=== PATIENT | male | born 1935 | race Caucasian/White ===

== ENCOUNTER 2016-09-27 08:25 | Day surgery (SDC) | payer MEDICARE, OTHER ==
[2016-09-27] MEDS ORDERED: LACTATED RINGERS 1,000 ML IV ONE (09:03)
[2016-09-27] MEDS ORDERED: MIDAZOLAM 2 MG/2 ML VIAL IVP ONE (09:34)
[2016-09-27] MEDS ORDERED: fentaNYL 250 MCG/5 ML VIAL IVP ONE (09:34)
== END 2016-09-27 08:26 | disposition home or self-care (01) ==
PROC: 0DBH8ZZ Excision of Cecum, Via Natural or Artificial Opening Endoscopic (ICD-10-PCS; 2016-09-27)
PROC: 0DBL8ZZ Excision of Transverse Colon, Via Natural or Artificial Opening Endoscopic (ICD-10-PCS; principal; 2016-09-27 09:30)
DX: Z12.11 Encounter for screening for malignant neoplasm of colon (principal); D12.3 Benign neoplasm of transverse colon; D12.0 Benign neoplasm of cecum; K57.30 Diverticulosis of large intestine without perforation or abscess without bleeding; K64.1 Second degree hemorrhoids
CPT/HCPCS: 45380; 45385; 88305; J3010; J7120

== ENCOUNTER 2016-12-05 15:33 | Outpatient (CLI) | payer MEDICARE, OTHER | END 2016-12-05 15:34 | disposition home or self-care (01) | DX: Z79.899 Other long term (current) drug therapy (principal); I10 Essential (primary) hypertension; Z12.5 Encounter for screening for malignant neoplasm of prostate; E74.39 Other disorders of intestinal carbohydrate absorption; E78.5 Hyperlipidemia, unspecified | CPT/HCPCS: 36415; 80053; 80061; 83036; 84443; 85025; G0103 ==

== ENCOUNTER 2018-01-03 09:14 | Outpatient (CLI) | payer MEDICARE, OTHER ==
[2018-01-03 09:35] LABS: BASOPHILS % (AUTO) 0.5 %; EOSINOPHILS # (AUTO) 0.1 10^3/uL (0.0-0.7); EOSINOPHILS % (AUTO) 2.4 %; HGB - HEMOGLOBIN 14.9 g/dL (14.0-18.0); LYMPHOCYTES # (AUTO) 1.5 10^3/uL (1.5-3.5); LYMPHOCYTES % (AUTO) 29.4 %; MEAN CORPUSCULAR HEMOGLOBIN 31.4 pg (27.0-31.0); MEAN CORPUSCULAR HGB CONC 34.2 g/dL (32.0-36.0); MEAN CORPUSCULAR VOLUME 91.7 fL (80.0-94.0); MEAN PLATELET VOLUME 7.6 fL (7.4-11.4); MONOCYTES # (AUTO) 0.4 10^3/uL (0.0-1.0); MONOCYTES % (AUTO) 8.2 %; NEUTROPHILS # (AUTO) 3.1 10^3/uL (1.5-6.6); NEUTROPHILS % (AUTO) 59.5 %; PLT - PLATELET COUNT 178 10^3/uL (130-450); RED BLOOD COUNT 4.73 10^6/uL (4.70-6.10); WHITE BLOOD COUNT 5.2 x10^3/uL (4.8-10.8)
[2018-01-03 10:44] LABS: ALBUMIN 3.8 g/dL (3.2-5.5); ALBUMIN/GLOBULIN RATIO 1.3 (1.0-2.2); ALKALINE PHOSPHATASE 63 IU/L (42-121); ALT ALANINE AMINOTRANSFERASE 23 IU/L (10-60); AST ASPARTATE AMINOTRANSFERASE 35 IU/L (10-42); BILIRUBIN,TOTAL 1.3 mg/dL (0.2-1.0); BUN - BLOOD UREA NITROGEN 18 mg/dL (6-20); CALCIUM 8.7 mg/dL (8.5-10.3); CARBON DIOXIDE - CO2 27 mmol/L (21-32); CHLORIDE 103 mmol/L (101-111); CHOL/HDL RATIO 4.4 (<5.0); CHOLESTEROL 198 mg/dL; CREATININE 0.9 mg/dL (0.6-1.2); GFR - MDRD 81 (>89); GLUCOSE 116 mg/dL (70-100); HDL CHOLESTEROL 45 mg/dL; LDL CHOLESTEROL,CALCULATED 126 mg/dL; LDL/HDL RATIO 2.8 (<3.6); SODIUM 136 mmol/L (135-145); TOTAL PROTEIN 6.8 g/dL (6.7-8.2); VLDL CHOLESTEROL 27 mg/dL
== END 2018-01-03 09:15 | disposition home or self-care (01) ==
LOC: LAB 09:14
PROVIDERS: ATTEND Physician Assistant
DX: R74.8 Abnormal levels of other serum enzymes (principal); E78.5 Hyperlipidemia, unspecified; Z12.5 Encounter for screening for malignant neoplasm of prostate; F52.21 Male erectile disorder; I10 Essential (primary) hypertension; R20.2 Paresthesia of skin
CPT/HCPCS: 36415; 80053; 80061; 84443; 85025; G0103; 83721; 84153

== ENCOUNTER 2018-12-12 18:50 | Emergency (ER) | payer MEDICARE, OTHER ==
[2018-12-12 20:05] LABS: BILIRUBIN,URINE NEGATIVE (NEGATIVE); GLUCOSE, URINE (UA) NEGATIVE (NEGATIVE); KETONES,URINE (UA) NEGATIVE (NEGATIVE); LEUKOCYTE ESTERASE, URINE NEGATIVE (NEGATIVE); NITRITE,URINE NEGATIVE (NEGATIVE); OCCULT BLOOD,URINE MODERATE (NEGATIVE); PROTEIN,URINE NEGATIVE (NEGATIVE); UROBILINOGEN,URINE 0.2 (NORMAL) E.U./dL (NORMAL)
[2018-12-12 20:06] LABS: CLARITY,URINE CLEAR (CLEAR)
[2018-12-12 20:06] LABS: BASOPHILS % (AUTO) 0.2 %; EOSINOPHILS # (AUTO) 0.1 10^3/uL (0.0-0.7); EOSINOPHILS % (AUTO) 0.7 %; HGB - HEMOGLOBIN 14.2 g/dL (14.0-18.0); LYMPHOCYTES # (AUTO) 0.4 10^3/uL (1.5-3.5); LYMPHOCYTES % (AUTO) 4.7 %; MEAN CORPUSCULAR HEMOGLOBIN 30.7 pg (27.0-31.0); MEAN CORPUSCULAR VOLUME 90.2 fL (80.0-94.0); MEAN PLATELET VOLUME 8.1 fL (7.4-11.4); MONOCYTES # (AUTO) 0.3 10^3/uL (0.0-1.0); MONOCYTES % (AUTO) 3.4 %; NEUTROPHILS # (AUTO) 7.1 10^3/uL (1.5-6.6); PLT - PLATELET COUNT 154 10^3/uL (130-450); RED BLOOD COUNT 4.63 10^6/uL (4.70-6.10); RED CELL DISTRIBUTION WIDTH 12.8 % (12.0-15.0); WHITE BLOOD COUNT 7.8 x10^3/uL (4.8-10.8)
[2018-12-12 20:15] LABS: BACTERIA,URINE None Seen /HPF (None Seen); RBC,URINE 0-5 /HPF (0-5); SQUAMOUS EPITHELIAL CELL,UR RARE Squamous (<= Few)
[2018-12-12 20:16] LABS: ALBUMIN/GLOBULIN RATIO 1.4 (1.0-2.2); BILIRUBIN,TOTAL 0.6 mg/dL (0.2-1.0); CALCIUM 8.7 mg/dL (8.5-10.3); CREATININE 0.9 mg/dL (0.6-1.2); TOTAL PROTEIN 6.8 g/dL (6.7-8.2)
[2018-12-12 21:01] VITALS: BP 124/72
--- NOTE | 2018-12-12 21:41 | ED Physician Documentation ---
PD HPI FEVER - Stated complaint Stated Complaint: SHAKING - Chief complaint Chief Complaint: Fever - History obtained from History obtained from: Patient - History of Present Illness Timing - onset: Enter time (17:00), Today Timing details: Abrupt onset Pain level max: 0 Pain level now: 0 Associated symptoms: Chills, Nasal congestion (mild x 1 month). No: Sweats Similar symptoms before: Has not had sx before Recently seen: Not recently seen - Additional information Additional information: while driving home today, at approximately 5:30 PM, patient had rapid onset of generalized shaking chills. This continued once he arrived home; he took his blood pressure and found it to be 160s SBP. Shaking resolved en route to ED (private vehicle), and he tells me he is asymptomatic on my HPI/ROS. He told triaging RN about some abdominal discomfort, but he tells me that was minor and has resolved completely. Review of Systems Constitutional: reports: Fever, Chills. denies: Myalgias, Fatigue, Sweats Ears: denies: Ear pain Nose: reports: Congestion (mild sinus congestion x 1 month). denies: Rhinorrhea / runny nose, Sinus pressure / pain Throat: denies: Sore throat Cardiac: reports: Reviewed and negative Respiratory: reports: Reviewed and negative GI: reports: Reviewed and negative : denies: Dysuria, Frequency Skin: denies: Rash Musculoskeletal: denies: Neck pain, Back pain Neurologic: denies: Generalized weakness, Focal weakness, Headache PD PAST MEDICAL HISTORY - Past Medical History Past Medical History: Yes Cardiovascular: High cholesterol, Arrhythmia Respiratory: None Endocrine/Autoimmune: None GI: None : Benign prostate hypertrophy HEENT: None Psych: None Musculoskeletal: None Derm: None - Past Surgical History Past Surgical History: Yes General: Appendectomy, Colonoscopy Ortho: Other - Present Medications Home Medications: Ambulatory Orders Medication Instructions Recorded Confirmed Finasteride [Proscar] 5 mg PO DAILY 02/26/15 12/12/18 Lovastatin 40 mg ORAL DAILY 02/26/15 12/12/18 Tamsulosin [Flomax] 0.4 mg PO ONCE 02/26/15 12/12/18 - Allergies Allergies/Adverse Reactions: Allergies Allergy/AdvReac Type Severity Reaction Status Date / Time No Known Drug Allergies Allergy Verified 12/12/18 19:16 - Social History Does the pt smoke?: No Smoking Status: Never smoker Does the pt drink ETOH?: No Does the pt have substance abuse?: No - Immunizations Immunizations are current?: No - POLST Patient has POLST: No PD ED PE NORMAL - Vitals Vital signs reviewed: Yes - General General: Alert and oriented X 3, No acute distress, Well developed/nourished - HEENT HEENT: PERRL, EOMI, Moist mucous membranes, Pharynx benign - Neck Neck: Supple, no meningeal sign - Cardiac Cardiac: RRR, No murmur - Respiratory Respiratory: No respiratory distress, Clear bilaterally - Abdomen Abdomen: Normal bowel sounds, Soft, Non tender, Non distended - Back Back: No CVA TTP - Derm Derm: Normal color, Warm and dry - Extremities Extremities: Normal ROM s pain, No edema - Neuro Neuro: Alert and oriented X 3 Results - Vitals Vitals: Vital Signs - 24 hr 12/12/18 12/12/18 12/12/18 19:11 19:58 20:23 Temperature 37.9 C H 37.7 C H Heart Rate 100 85 84 Respiratory 16 17 17 Rate Blood Pressure 149/72 H 132/80 H 118/77 O2 Saturation 96 95 94 12/12/18 12/12/18 12/12/18 21:01 22:00 22:48 Temperature 38.6 C H 37.3 C 98.5 C H Heart Rate 81 Respiratory 18 Rate Blood Pressure 124/72 O2 Saturation 96 Oxygen O2 Source Room air - Labs Labs: Laboratory Tests 12/12/18 12/12/18 12/12/18 19:40 19:41 19:50 WBC 7.8 RBC 4.63 L Hgb 14.2 Hct 41.7 L MCV 90.2 MCH 30.7 MCHC 34.0 RDW 12.8 Plt Count 154 MPV 8.1 Neut # (Auto) 7.1 H Lymph # (Auto) 0.4 L [place] # (Auto) 0.3 Eos # (Auto) 0.1 Baso # (Auto) 0.0 Absolute Nucleated RBC 0.00 Nucleated RBC % 0.0 Sodium Potassium Chloride Carbon Dioxide Anion Gap BUN Creatinine Estimated GFR (MDRD) Glucose Lactic Acid 1.5 Calcium Total Bilirubin AST ALT Alkaline Phosphatase Total Protein Albumin Globulin Albumin/Globulin Ratio Lipase Urine Color YELLOW Urine Clarity CLEAR Urine pH 5.0 Ur Specific [place] 1.020 Urine Protein NEGATIVE Urine Glucose (UA) NEGATIVE Urine Ketones NEGATIVE Urine Occult Blood MODERATE H Urine Nitrite NEGATIVE Urine Bilirubin NEGATIVE Urine Urobilinogen 0.2 (NORMAL) Ur Leukocyte Esterase NEGATIVE Urine RBC 0-5 Urine WBC 0-3 Ur Squamous Epith Cells RARE Squamous Urine Bacteria None Seen Ur Microscopic Review INDICATED Urine Culture Comments NOT INDICATED Influenza A (Rapid) Influenza B (Rapid) 12/12/18 12/12/18 19:50 21:50 WBC RBC Hgb Hct MCV MCH MCHC RDW Plt Count MPV Neut # (Auto) Lymph # (Auto) [place] # (Auto) Eos # (Auto) Baso # (Auto) Absolute Nucleated RBC Nucleated RBC % Sodium 137 Potassium 3.5 Chloride 100 L Carbon Dioxide 26 Anion Gap 11.0 BUN 20 Creatinine 0.9 Estimated GFR (MDRD) 81 L Glucose 103 H Lactic Acid Calcium 8.7 Total Bilirubin 0.6 AST 33 ALT 21 Alkaline Phosphatase 75 Total Protein 6.8 Albumin 4.0 Globulin 2.8 Albumin/Globulin Ratio 1.4 Lipase 28 Urine Color Urine Clarity Urine pH Ur Specific [place] Urine Protein Urine Glucose (UA) Urine Ketones Urine Occult Blood Urine Nitrite Urine Bilirubin Urine Urobilinogen Ur Leukocyte Esterase Urine RBC Urine WBC Ur Squamous Epith Cells Urine Bacteria Ur Microscopic Review Urine Culture Comments Influenza A (Rapid) Negative Influenza B (Rapid) Negative PD MEDICAL DECISION MAKING - ED course Complexity details: reviewed results, re-evaluated patient, considered differential, d/w patient ED course: Remained asymptomatic for remainder of ED stay. I recommended tylenol or ibuprofen for his fever, but he declines, says he will take this when he gets home Departure - Departure Disposition: 01 Home, Self Care Clinical Impression: Fever Condition: Good Instructions: ED Fever Unconf Cause, ED Fever Control Follow-Up: Trav Avitia MD [Primary Care Provider] - Discharge Date/Time: 12/12/18 22:51
== END 2018-12-12 22:51 | disposition home or self-care (01) ==
LOC: ED 18:50
DX: R50.9 Fever, unspecified (principal)
CPT/HCPCS: 36415; 80053; 81001; 81003; 83605; 83690; 85025; 87040; 87086; 87275; 87276; 99282; 99284

== ENCOUNTER 2018-12-31 07:53 | Outpatient (CLI) | payer MEDICARE, OTHER ==
[2018-12-31 08:32] LABS: ALBUMIN 3.8 g/dL (3.2-5.5); ALBUMIN/GLOBULIN RATIO 1.3 (1.0-2.2); ALKALINE PHOSPHATASE 72 IU/L (42-121); ALT ALANINE AMINOTRANSFERASE 26 IU/L (10-60); AST ASPARTATE AMINOTRANSFERASE 34 IU/L (10-42); BILIRUBIN,TOTAL 0.9 mg/dL (0.2-1.0); BUN - BLOOD UREA NITROGEN 17 mg/dL (6-20); CARBON DIOXIDE - CO2 30 mmol/L (21-32); CHLORIDE 104 mmol/L (101-111); CHOL/HDL RATIO 4.1 (<5.0); CHOLESTEROL 184 mg/dL; CREATININE 0.9 mg/dL (0.6-1.2); GFR - MDRD 81 (>89); GLUCOSE 114 mg/dL (70-100); HDL CHOLESTEROL 45 mg/dL; LDL CHOLESTEROL,CALCULATED 126 mg/dL; LDL/HDL RATIO 2.8 (<3.6); SODIUM 141 mmol/L (135-145); TOTAL PROTEIN 6.8 g/dL (6.7-8.2); VLDL CHOLESTEROL 13 mg/dL
== END 2018-12-31 07:54 | disposition home or self-care (01) ==
LOC: LAB 07:53
PROVIDERS: ATTEND Internal Medicine
DX: E78.5 Hyperlipidemia, unspecified (principal); N40.1 Benign prostatic hyperplasia with lower urinary tract symptoms; E74.39 Other disorders of intestinal carbohydrate absorption
CPT/HCPCS: 36415; 80053; 80061; 83036; 83721; 84153

== ENCOUNTER 2019-10-18 08:23 | Outpatient (CLI) | payer MEDICARE, OTHER ==
[2019-10-18 09:28] LABS: ALBUMIN 4.1 g/dL (3.2-5.5); ALBUMIN/GLOBULIN RATIO 1.4 (1.0-2.2); ALKALINE PHOSPHATASE 63 IU/L (42-121); ALT ALANINE AMINOTRANSFERASE 19 IU/L (10-60); AST ASPARTATE AMINOTRANSFERASE 28 IU/L (10-42); BILIRUBIN,TOTAL 0.8 mg/dL (0.2-1.0); BUN - BLOOD UREA NITROGEN 18 mg/dL (6-20); CALCIUM 8.9 mg/dL (8.5-10.3); CARBON DIOXIDE - CO2 29 mmol/L (21-32); CHLORIDE 105 mmol/L (101-111); CHOL/HDL RATIO 3.7 (<5.0); CHOLESTEROL 159 mg/dL; GFR - MDRD 71 (>89); GLUCOSE 114 mg/dL (70-100); HB2 TOTAL 15.1 g/dL; HDL CHOLESTEROL 43 mg/dL; HEMOGLOBIN A1C 0.61 g/dL; HEMOGLOBIN A1C % 5.8 % (4.6-6.2); LDL CHOLESTEROL,CALCULATED 101 mg/dL; LDL/HDL RATIO 2.3 (<3.6); SODIUM 139 mmol/L (135-145); VLDL CHOLESTEROL 15 mg/dL
== END 2019-10-18 08:24 | disposition home or self-care (01) ==
LOC: LAB 08:23
PROVIDERS: ATTEND Internal Medicine
DX: E78.5 Hyperlipidemia, unspecified (principal); R73.02 Impaired glucose tolerance (oral); N40.1 Benign prostatic hyperplasia with lower urinary tract symptoms
CPT/HCPCS: 36415; 80053; 80061; 83036; 83721; 84153

== ENCOUNTER 2020-11-19 08:42 | Outpatient (CLI) | payer MEDICARE, OTHER ==
[2020-11-19 08:58] LABS: BASOPHILS % (AUTO) 0.6 %; EOSINOPHILS # (AUTO) 0.1 10^3/uL (0.0-0.7); EOSINOPHILS % (AUTO) 2.1 %; HCT - HEMATOCRIT 45.3 % (42.0-52.0); HGB - HEMOGLOBIN 15.7 g/dL (14.0-18.0); LYMPHOCYTES # (AUTO) 1.7 10^3/uL (1.5-3.5); LYMPHOCYTES % (AUTO) 26.7 %; MEAN CORPUSCULAR HEMOGLOBIN 31.8 pg (27.0-31.0); MEAN CORPUSCULAR HGB CONC 34.7 g/dL (32.0-36.0); MEAN CORPUSCULAR VOLUME 91.7 fL (80.0-94.0); MEAN PLATELET VOLUME 9.2 fL (7.4-11.4); MONOCYTES # (AUTO) 0.5 10^3/uL (0.0-1.0); MONOCYTES % (AUTO) 7.6 %; NEUTROPHILS # (AUTO) 3.9 10^3/uL (1.5-6.6); NEUTROPHILS % (AUTO) 62.7 %; PLT - PLATELET COUNT 207 10^3/uL (130-450); RED BLOOD COUNT 4.94 10^6/uL (4.70-6.10); RED CELL DISTRIBUTION WIDTH 12.3 % (12.0-15.0); WHITE BLOOD COUNT 6.2 x10^3/uL (4.8-10.8)
[2020-11-19 09:14] LABS: ALBUMIN 4.5 g/dL (3.2-5.5); ALBUMIN/GLOBULIN RATIO 1.6 (1.0-2.2); ALKALINE PHOSPHATASE 65 IU/L (42-121); ALT ALANINE AMINOTRANSFERASE 32 IU/L (10-60); AST ASPARTATE AMINOTRANSFERASE 37 IU/L (10-42); BILIRUBIN,TOTAL 0.8 mg/dL (0.2-1.0); BUN - BLOOD UREA NITROGEN 18 mg/dL (6-20); CALCIUM 9.3 mg/dL (8.5-10.3); CARBON DIOXIDE - CO2 30 mmol/L (21-32); CHLORIDE 105 mmol/L (101-111); CHOL/HDL RATIO 4.3 (<5.0); CHOLESTEROL 191 mg/dL; GFR - MDRD 71 (>89); GLUCOSE 121 mg/dL (70-100); HDL CHOLESTEROL 44 mg/dL; LDL CHOLESTEROL,CALCULATED 125 mg/dL; LDL/HDL RATIO 2.8 (<3.6); POTASSIUM 4.6 mmol/L (3.5-5.0); SODIUM 141 mmol/L (135-145); TOTAL PROTEIN 7.4 g/dL (6.7-8.2); TRIGLYCERIDES 112 mg/dL; VLDL CHOLESTEROL 22 mg/dL
== END 2020-11-19 08:43 | disposition home or self-care (01) ==
LOC: LAB 08:42
PROVIDERS: ATTEND Internal Medicine
DX: I10 Essential (primary) hypertension (principal); E78.5 Hyperlipidemia, unspecified; Z12.5 Encounter for screening for malignant neoplasm of prostate
CPT/HCPCS: 36415; 80053; 80061; 85025; G0103; 83721; 84153

== ENCOUNTER 2020-11-21 11:40 | Emergency (ER) | payer MEDICARE, OTHER ==
[2020-11-21] MEDS ORDERED: IOPAMIDOL-300 100 ML VIAL ONE (12:40)
--- OUTSIDE RECORDS SUMMARY | 2020-11-21 12:42 | EXTERNAL MEDICAL SUMMARY RPT | Continuity of Care Document ---
:1935 Demographics Phone Unavailable Preferred Language Unknown Marital Status Unknown [employer] Affiliation Unknown Race Unknown Ethnic Group Unknown Author Organization [facility] Address [address] [id number] Phone Social History date description facility [phone]
--- NOTE | 2020-11-21 12:43 | ED Physician Documentation ---
History of Present Illness - Stated complaint Stated Complaint: CONSTIPATION - Chief complaint Chief Complaint: Abd Pain - History obtained from History obtained from: Patient - Additonal information Additional information: Patient comes emergency department chief complaint of difficulty having bowel movement for the last month. Patient states that he has never had a problem with constipation before. He has always been very healthy and eats a very healthy diet with a lot of fresh fruits and vegetables. He exercises regularly and only takes 3 medications. The patient states that he began to notice that he was not able to have bowel movements easily about a month ago and states it has been getting worse and worse. He does not have pain, just a sensation of fullness and pressure in his pelvic area. He has not been nauseated or vomiting. He has a history of a right inguinal hernia, which he is going to have surgically repaired. Patient states that he has not noticed any blood in his stools. He took MiraLAX and an enema last week and was able to have a reasonably sized bowel movement about 1 week ago, but states he never felt as though he had completely evacuated. The patient states that since then, he has had a couple of bowel movements which have been minimal and very skinny and that he has had to push hard to get these to come out. However, he states that the stool that has come out is soft. No other complaints at this time. Has not had any unexplained weight loss. He states he is not aware of any colon cancer running in his family, though he states that his parents are very stoic and never talked about any of their health issues. Patient had a colonoscopy a few years ago which looked good. Review of Systems Ten Systems: 10 systems reviewed and negative Constitutional: reports: Reviewed and negative Eyes: reports: Reviewed and negative Ears: reports: Reviewed and negative Nose: reports: Reviewed and negative Throat: reports: Reviewed and negative Cardiac: reports: Reviewed and negative Respiratory: reports: Reviewed and negative GI: reports: Constipation, Reviewed and negative, Other (pelvic pressure). denies: Abdominal Pain, Nausea, Vomiting : reports: Reviewed and negative Skin: reports: Reviewed and negative Musculoskeletal: reports: Reviewed and negative Neurologic: reports: Reviewed and negative Psychiatric: reports: Reviewed and negative Endocrine: reports: Reviewed and negative Immunocompromised: reports: Reviewed and negative PD PAST MEDICAL HISTORY - Past Medical History Past Medical History: Yes Cardiovascular: High cholesterol, Arrhythmia Respiratory: None Neuro: None Endocrine/Autoimmune: None GI: None : Benign prostate hypertrophy HEENT: None Psych: None Musculoskeletal: None Derm: None - Past Surgical History Past Surgical History: Yes General: Appendectomy, Colonoscopy Ortho: Other - Present Medications Home Medications: Ambulatory Orders Medication Instructions Recorded Confirmed Finasteride [Proscar] 5 mg PO DAILY 02/26/15 11/21/20 Lovastatin 40 mg ORAL DAILY 02/26/15 11/21/20 Tamsulosin [Flomax] 0.4 mg PO DAILY PM 02/26/15 11/21/20 - Allergies Allergies/Adverse Reactions: Allergies Allergy/AdvReac Type Severity Reaction Status Date / Time No Known Drug Allergies Allergy Verified 11/21/20 11:43 - Social History Does the pt smoke?: No Smoking Status: Never smoker Does the pt drink ETOH?: No Does the pt have substance abuse?: No - Immunizations Immunizations are current?: Yes - POLST Patient has POLST: No PD ED PE NORMAL - Vitals Vital signs reviewed: Yes - General General: Alert and oriented X 3, No acute distress, Well developed/nourished (Patient appears well, and much younger than stated age.) - HEENT HEENT: Atraumatic, PERRL, EOMI, Moist mucous membranes - Neck Neck: Supple, no meningeal sign - Cardiac Cardiac: RRR, No murmur - Respiratory Respiratory: No respiratory distress, Clear bilaterally - Abdomen Abdomen: Soft, Non tender, Non distended - Male Male : Other (Mild fullness of R proximal scrotum, no mass. Normal male genitalia, uncircumcised.) - Derm Derm: Normal color, Warm and dry, No rash - Extremities Extremities: No deformity, No edema, No calf tenderness / cord - Neuro Neuro: Alert and oriented X 3 - Psych Psych: Normal mood, Normal affect Results - Vitals Vitals: Oxygen O2 Source Room air - Labs Labs: Laboratory Tests 11/21/20 12:44 Sodium 138 Potassium 4.0 Chloride 102 Carbon Dioxide 27 Anion Gap 9.0 BUN 18 Creatinine 0.9 Estimated GFR (MDRD) 80 L Glucose 110 H Calcium 8.9 - Rads (name of study) CT abd/pelvis Radiology: Final report received, EMP read indepedently, See rad report (bilateral fat-containing hernias; NAD) PD MEDICAL DECISION MAKING - ED course Complexity details: reviewed results, re-evaluated patient, considered differential, d/w patient ED course: Discussed with the patient that generally, any obstructive process, whether by volvulus or by mechanical obstruction, is going to cause pain, as well as nausea and vomiting. The patient stools have been soft which does not indicate a problem with the stool itself. Patient is concerned about possible obstruction related to his hernia., And states he came to the ED with hopes that we could do some imaging to take a look at this. Although I feel the likelihood is low, given his lack of other symptoms, this would be, along with potential for a mass, the only discernible reason that he may have bowel movement issues otherwise, and so I have ordered a CT of the abdomen and pelvis. This was done and unremarkable. We have discussed home management and the need for follow-up, as well as the usual indications for return. Departure - Departure Disposition: 01 Home, Self Care Clinical Impression: Inguinal hernia Qualifiers: Obstruction and gangrene presence: without obstruction or gangrene Laterality: bilateral Recurrence: not specified as recurrent Qualified Code(s): K40.20 - Bilateral inguinal hernia, without obstruction or gangrene, not specified as recurrent Condition: Stable Instructions: ED Hernia Inguinal Comments: Your CT scan shows hernias on both sides, but the right is greater than the left. Your bowels actually appear normal, and there is no evidence of a stool mass, tumor, or excess amount of stool in your intestines. Most likely, you have cleared out more during your bowel movements than you realize. If you are eating a good, high-fiber diet and keeping active, then it is best to just let your body have bowel movements when it is ready. Please do not try to push stool out if you do not have an urge to go, as this will make your hernias worse and can also cause hemorrhoids. Please follow-up with your primary care physician as needed. Discharge Date/Time: 11/21/20 14:21
[2020-11-21 13:00] LABS: CALCIUM 8.9 mg/dL (8.5-10.3); CREATININE 0.9 mg/dL (0.6-1.2)
[2020-11-21] MEDS ORDERED: IOPAMIDOL-300 100 ML VIAL IVP ONE (13:38)
--- NOTE | 2020-11-21 13:53 | CT Report ---
PROCEDURE: Abdomen/Pelvis W INDICATIONS: hernia, trouble with BM CONTRAST: IV CONTRAST: Isovue 300 ml: 100 PO CONTRAST: *NO PO CONTRAST TECHNIQUE: After the administration of nonionic IV contrast, 5 mm thick sections acquired from the diaphragms to the symphysis. 5 mm thick coronal and sagittal reformats were acquired. For radiation dose reducti on, the following was used: automated exposure control, adjustment of mA and/or kV according to xiomara ent size. COMPARISON: None. FINDINGS: Image quality: Excellent. ABDOMEN: Lung bases: Lung bases are clear. Heart size is normal. A small hiatal hernia is incidentally note d. Solid organs: Liver and spleen are normal in size and enhancement. Simple appearing, nonenhancing l iver cysts are seen. Gallbladder wall does not appear thickened. Biliary system is non dilated. P ancreas enhances normally. No adrenal nodules. Kidneys demonstrate normal size and enhancement, wit hout hydronephrosis. Peritoneum and bowel: Bowel loops demonstrate normal wall thickness and caliber. No free fluid or a ir. Diverticulosis can be seen, without marely findings of active diverticulitis. Nodes and vessels: No retroperitoneal or mesenteric adenopathy by size criteria. Aorta and inferior vena cava are normal in size. Atherosclerotic calcification is seen. Focal irregularity and narrowi ng can be seen of the distal aorta, with approximately 40% luminal narrowing. Dense calcification of the mid SMA can be seen, as on series 3 image 26, with approximately 50% narrowing. Miscellaneous: No ventral hernias. PELVIS: Genitourinary: Bladder wall thickness is normal. Miscellaneous: Bilateral fat-containing inguinal hernias are seen, left larger than right. No inguin al adenopathy. Bones: Left-sided sacroiliac joint screws can be seen. No suspicious bony lesions. No vertebral bod y compression fractures. Focal L5-S1 degenerative change is seen, with at least moderate disc space narrowing. Mild grade 1 L5-S1 anterolisthesis can be seen, without pars defects. Milder degenerative changes are seen elsewhere. IMPRESSION: There are bilateral fat-containing inguinal hernias seen, left larger than right. Atherosclerotic calcification and irregularity can be seen, including approximately 40% distal aortic narrowing and approximately 50% mid SMA narrowing. Incidental note is made of: Small hiatal hernia Simple appearing liver cysts Sigmoid diverticulosis, without active diverticulitis Focal L5-S1 degenerative change Left-sided sacroiliac screws Reviewed by: Chidi Russo MD on 11/21/2020 12:52 PM AKDT Approved by: Chidi Russo MD on 11/21/2020 12:52 PM AKDT Station ID: [id number]
[2020-11-21 14:18] VITALS: BP 120/65
== END 2020-11-21 14:21 | disposition home or self-care (01) ==
LOC: ED 11:40
DX: K40.20 Bilateral inguinal hernia, without obstruction or gangrene, not specified as recurrent (principal)
CPT/HCPCS: 36415; 74177; 80048; 99284; Q9967

== ENCOUNTER 2020-12-03 15:05 | Outpatient (CLI) | payer MEDICARE, OTHER | END 2020-12-03 15:06 | disposition home or self-care (01) | LOC: COV 15:05 | PROVIDERS: ATTEND Surgery | DX: Z01.812 Encounter for preprocedural laboratory examination (principal); K40.91 Unilateral inguinal hernia, without obstruction or gangrene, recurrent; Z20.822 Contact with and (suspected) exposure to COVID-19 ==

== ENCOUNTER 2020-12-07 06:25 | Day surgery (SDC) | payer MEDICARE, OTHER ==
[~2020-12-07 06:25] MED LIST: LACTATED RINGERS 1,000 ML IV ONE; ceFAZolin 2 GM/50 ML 2 GM/50 ML BAG IV ONE
--- OUTSIDE RECORDS SUMMARY | 2020-12-07 06:28 | EXTERNAL MEDICAL SUMMARY RPT | Continuity of Care Document ---
:1935 Demographics Phone Unavailable Preferred Language Unknown Marital Status Unknown [employer] Affiliation Unknown Race Unknown Ethnic Group Unknown Author Organization [place] [facility] Address [address] [id number] Phone Social History date description facility [phone]
[2020-12-07] MEDS ORDERED: BUPIVACAINE 0.25% PF 30 ML VIAL ONE (06:52)
[2020-12-07] MEDS ORDERED: LACTATED RINGERS 1,000 ML IV ONE ×2 (06:55→09:05)
--- NOTE | 2020-12-07 06:55 | ANESTHESIA ---
Pre-Anesthesia VS, & Labs - Diagnosis recurrent inguinal hernia - Procedure Laparoscopic inguinal hernia repair Vital Signs: Temp Pulse Resp BP Pulse Ox 36.1 C L 73 14 140/84 H 97 12/07/20 06:28 12/07/20 06:28 12/07/20 06:28 12/07/20 06:28 12/07/20 06:28 Height: 5 ft 11 in Weight (kg): 87.9 kg Body Mass Index: 27.0 BMI Classification: Overweight - NPO >8 hours - Lab Results Lab results reviewed: Yes Home Medications and Allergies Finasteride [Proscar] 5 mg PO DAILY 02/26/15 Lovastatin 40 mg ORAL DAILY 02/26/15 Tamsulosin [Flomax] 0.4 mg PO DAILY PM 02/26/15 Allergies/Adverse Reactions: Allergies Allergy/AdvReac Type Severity Reaction Status Date / Time No Known Drug Allergies Allergy Verified 11/21/20 11:43 Anes History & Medical History - Anesthetic History Anesthesia Complications: reports: No previous complications Family history of Anesthesia Complications: Denies Family history of Malignant Hyperthermia: Denies - Medical History Cardiovascular: reports: High cholesterol, Arrhythmia Pulmonary: reports: None Gastrointestinal: reports: Colon polyps, Chronic constipation Urinary: reports: Benign prostate hypertrophy Neuro: reports: None Musculoskeletal: reports: None Endocrine/Autoimmune: reports: None Blood Disorders: reports: None Skin: reports: None Smoking Status: Never smoker - Surgical History General: reports: Appendectomy, Colonoscopy Eyes Ears Nose Throat (EENT): reports: Cataracts Orthopedic: reports: Other Exam General: Alert, Oriented x3, Cooperative, No acute distress Dental: WNL Mouth Openin Fingerbreadth Neck Mobility: Normal Mallampati classification: I Respiratory: Lungs clear, Normal breath sounds, No respiratory distress, No accessory muscle use Cardiovascular: Regular rate, Normal S1, Normal S2, No murmurs Plan Anesthesia Type: General Consent for Procedure(s) Verified and Reviewed: Yes Code Status: Attempt Resuscitation ASA classification: 2-Mild systemic disease Is this case an emergency?: No
[2020-12-07] MEDS ORDERED: fentaNYL 100 MCG/2 ML VIAL ONE (06:57)
[2020-12-07] MEDS ORDERED: LIDOCAINE-MPF 2% 5 ML VIAL ONE (06:57)
[2020-12-07] MEDS ORDERED: PROPOFOL 200 MG/20 ML VIAL IVP ONE (06:57)
[2020-12-07] MEDS ORDERED: MIDAZOLAM 2 MG/2 ML VIAL ONE (06:57)
[2020-12-07] MEDS ORDERED: ROCURONIUM 50 MG/5 ML VIAL ONE (06:59)
[2020-12-07] MEDS ORDERED: ATROPINE ABBOJECT 1 MG/10 ML SYRINGE IVP PRN (07:15)
[2020-12-07] MEDS ORDERED: MORPHINE 2 MG/ML CARPUJECT IVP PRN (07:15)
[2020-12-07] MEDS ORDERED: fentaNYL 100 MCG/2 ML VIAL IVP PRN (07:15)
[2020-12-07] MEDS ORDERED: NALOXONE 0.4 MG/ML VIAL IVP PRN (07:15)
[2020-12-07] MEDS ORDERED: ePHEDrine 50 MG/ML VIAL IVP PRN (07:15)
[2020-12-07] MEDS ORDERED: HYDROmorphone 0.5 MG/0.5 ML SYRINGE IVP PRN (07:15)
[2020-12-07] MEDS ORDERED: METOCLOPRAMIDE 10 MG/2 ML VIAL IVP PRN (07:15)
[2020-12-07] MEDS ORDERED: ONDANSETRON 4 MG/2 ML VIAL IVP PRN (07:15)
[2020-12-07] MEDS ORDERED: PHENYLEPHRINE 10 MG/ML VIAL ONE (07:31)
[2020-12-07] MEDS ORDERED: DEXAMETHASONE 4 MG/ML VIAL ONE (07:39)
[2020-12-07] MEDS ORDERED: ONDANSETRON 4 MG/2 ML VIAL ONE (07:39)
[2020-12-07] MEDS ORDERED: BUPIVACAINE 0.25% PF 30 ML VIAL SUBQ ONE ×2 (07:39→08:46)
[2020-12-07] MEDS ORDERED: LACTATED RINGERS 1,000 ML IV SCH (08:00)
[2020-12-07] MEDS ORDERED: ACETAMINOPHEN 1,000 MG/100 ML 100 ML IV ONE (08:14)
[2020-12-07] MEDS ORDERED: NEOSTIGMINE 1 MG/1 ML 10 ML MDV ONE (08:40)
[2020-12-07] MEDS ORDERED: GLYCOPYRROLATE 1 MG/5 ML VIAL ONE (08:40)
[2020-12-07] MEDS ORDERED: HYDROcod/ACETAM 5/325 MG TABLET PO PRN (09:13)
--- NOTE | 2020-12-07 09:13 | OPERATIVE REPORT ---
Operative Report - General Procedure Date: 12/07/20 Planned Procedure: lap repair recurrent right inguinal hernia Pre-Op Diagnosis: recurrent right inguinal hernia Procedure Performed: lap repair recurrent right inguinal hernia Post Op Diagnosis: direct and indirect recurrent inguinal hernia - Procedure Note Primary Surgeon: blanquita cummings Anesthesia Technique: General ET tube, Local Estimated Blood Loss (mL): 0 Findings: large right preform mesh Complications: none
--- NOTE | 2020-12-07 09:31 | ANESTHESIA POST OP EVALUATION ---
Anesthesia Post Eval - Post Anesthesia Eval Vitals: Last Vital Signs Temp 36.3 C L 12/07/20 09:25 Pulse 75 12/07/20 09:25 Resp 15 12/07/20 09:25 BP 112/75 12/07/20 09:25 Pulse Ox 93 12/07/20 09:25 CV Function Including HR & BP: Stable Pain Control: Satisfactory Nausea & Vomiting: Negative Mental Status: Baseline Respiratory Status: Airway Patent Hydration Status: Satisfactory Anesthesia Complications: None
--- NOTE | 2020-12-07 09:43 | OPERATIVE REPORT ---
DATE OF SERVICE: 12/07/2020 Physician: Alexis Sheppard MD PREOPERATIVE DIAGNOSIS: Recurrent right inguinal hernia with occasional bowel involvement. POSTOPERATIVE DIAGNOSES 1. Recurrent right inguinal hernia with occasional bowel involvement. 2. Recurrent direct and indirect right inguinal hernia. PROCEDURE: Laparoscopic preperitoneal right inguinal hernia repair with mesh, recurrent. SURGEON: Alexis Sheppard MD ADOPTION SOCIAL WORKER: None. ANESTHESIA 1. General endotracheal anesthesia. 2. Local anesthesia with Marcaine. COMPLICATIONS: None. SPECIMEN: None. ESTIMATED BLOOD LOSS: None. PROSTHETIC: Large Bard preformed mesh. FINDINGS: A large direct and densely scarred indirect inguinal hernia present. INDICATIONS FOR PROCEDURE: The patient is a healthy, active 85-year-old gentleman with a very symptomatic right inguinal hernia. Occasionally, he has intestinal involvement. He had prior open repair with mesh many years ago. He presents for laparoscopic repair. Risks discussed, alternatives discussed, all questions answered, and consent obtained. DETAILS OF THE PROCEDURE: The patient was properly identified, brought to the operating room, and placed in supine position. General endotracheal anesthesia was induced. Sequential compression devices and a Cavanaugh catheter were placed. He was prepped and draped in a sterile fashion and given preoperative antibiotics. Local anesthetic was given to incision areas. An infraumbilical incision was made. Dissection proceeded down to the fascia. The fascia was incised just right lateral of midline. The preperitoneal space was then carefully developed. A Abhishek trocar was then placed and secured with 3 interrupted 0 Vicryl sutures. CO2 was insufflated to a pressure of 12. The preperitoneal space was further developed with use of the scope. In the midline, two 5 mm trocars were then placed. The patient had a very large direct defect. The pubic tubercle and Ata's ligament were defined. The inferior epigastrics were kept with the cord structure. The patient had a very densely scarred indirect inguinal hernia sac to the cord structures and abdominal wall. This was carefully taken down. However, a tear did occur. Once the peritoneum was taken down, allowing for laparoscopic repair with large Bard preformed mesh, the tear in the peritoneum was closed with an Endoloop. Good closure was obtained. A large Bard preformed mesh was then placed and secured at the pubic tubercle along Ata's ligament and anteriorly medial to the inferior epigastrics with a capture device. The mesh lay in good position without tension. CO2 was evacuated under vision and trocars removed. Fascia at the infraumbilical site was closed with a total of 5 interrupted 0 Vicryl sutures. Prior to closure, CO2 was released from the abdomen through the umbilical trocar site. Skin was closed with buried interrupted or running 4-0 Monocryl. Dressings were applied. He tolerated the procedure very well. TD: 12/07/2020 09:42 vivienne PIÑA
[2020-12-07 10:03] VITALS: BP 108/67
== END 2020-12-07 06:26 | disposition home or self-care (01) ==
LOC: SDS 06:25
PROVIDERS: ATTEND Surgery
DX: K40.91 Unilateral inguinal hernia, without obstruction or gangrene, recurrent (principal); N40.0 Benign prostatic hyperplasia without lower urinary tract symptoms; E66.3 Overweight; Z68.27 Body mass index [BMI] 27.0-27.9, adult
CPT/HCPCS: 49651; C1781; J0131; J0690; J7120

== ENCOUNTER 2021-07-13 07:52 | Outpatient (CLI) | payer MEDICARE, OTHER ==
[2021-07-13 08:35] LABS: ALBUMIN 4.1 g/dL (3.2-5.5); ALBUMIN/GLOBULIN RATIO 1.3 (1.0-2.2); ALKALINE PHOSPHATASE 71 IU/L (42-121); ALT ALANINE AMINOTRANSFERASE 19 IU/L (10-60); AST ASPARTATE AMINOTRANSFERASE 29 IU/L (10-42); BUN - BLOOD UREA NITROGEN 23 mg/dL (6-20); CARBON DIOXIDE - CO2 27 mmol/L (21-32); CHLORIDE 102 mmol/L (101-111); CHOL/HDL RATIO 4.3 (<5.0); CHOLESTEROL 177 mg/dL; GFR - MDRD 71 (>89); GLUCOSE 113 mg/dL (70-100); HDL CHOLESTEROL 41 mg/dL; LDL CHOLESTEROL,CALCULATED 117 mg/dL; LDL/HDL RATIO 2.9 (<3.6); SODIUM 138 mmol/L (135-145); TOTAL PROTEIN 7.2 g/dL (6.7-8.2); TRIGLYCERIDES 94 mg/dL; VLDL CHOLESTEROL 19 mg/dL
[2021-07-13 08:40] LABS: BASOPHILS % (AUTO) 0.7 %; EOSINOPHILS # (AUTO) 0.1 10^3/uL (0.0-0.7); EOSINOPHILS % (AUTO) 1.9 %; HCT - HEMATOCRIT 43.8 % (42.0-52.0); HGB - HEMOGLOBIN 14.9 g/dL (14.0-18.0); LYMPHOCYTES # (AUTO) 1.7 10^3/uL (1.5-3.5); LYMPHOCYTES % (AUTO) 28.6 %; MEAN CORPUSCULAR VOLUME 91.3 fL (80.0-94.0); MEAN PLATELET VOLUME 9.7 fL (7.4-11.4); MONOCYTES # (AUTO) 0.5 10^3/uL (0.0-1.0); MONOCYTES % (AUTO) 8.7 %; NEUTROPHILS # (AUTO) 3.5 10^3/uL (1.5-6.6); NEUTROPHILS % (AUTO) 59.9 %; PLT - PLATELET COUNT 205 10^3/uL (130-450); RED CELL DISTRIBUTION WIDTH 12.5 % (12.0-15.0); WHITE BLOOD COUNT 5.8 x10^3/uL (4.8-10.8)
== END 2021-07-13 07:53 | disposition home or self-care (01) ==
LOC: LAB 07:52
PROVIDERS: ATTEND Internal Medicine
DX: I10 Essential (primary) hypertension (principal); I73.9 Peripheral vascular disease, unspecified
CPT/HCPCS: 36415; 80053; 80061; 83721; 85025

== ENCOUNTER 2022-08-23 10:20 | Outpatient (CLI) | payer MEDICARE, OTHER | END 2022-08-23 23:59 | disposition home or self-care (01) | LOC: LAB.S 10:20 | PROVIDERS: ATTEND Emergency Medicine | DX: L72.3 Sebaceous cyst (principal) | CPT/HCPCS: 87070; 87205 ==

== ENCOUNTER 2022-09-15 09:19 | Outpatient (CLI) | payer MEDICARE, OTHER ==
[2022-09-15 09:36] LABS: BASOPHILS # (AUTO) 0.1 10^3/uL (0.0-0.1); BASOPHILS % (AUTO) 0.6 %; EOSINOPHILS # (AUTO) 0.1 10^3/uL (0.0-0.7); EOSINOPHILS % (AUTO) 0.6 %; HCT - HEMATOCRIT 44.9 % (42.0-52.0); HGB - HEMOGLOBIN 14.7 g/dL (14.0-18.0); LYMPHOCYTES # (AUTO) 1.4 10^3/uL (1.5-3.5); LYMPHOCYTES % (AUTO) 17.8 %; MEAN CORPUSCULAR HEMOGLOBIN 29.8 pg (27.0-31.0); MEAN CORPUSCULAR HGB CONC 32.7 g/dL (32.0-36.0); MEAN CORPUSCULAR VOLUME 91.1 fL (80.0-94.0); MEAN PLATELET VOLUME 8.6 fL (7.4-11.4); MONOCYTES # (AUTO) 0.7 10^3/uL (0.0-1.0); MONOCYTES % (AUTO) 8.4 %; NEUTROPHILS # (AUTO) 5.7 10^3/uL (1.5-6.6); NEUTROPHILS % (AUTO) 72.1 %; PLT - PLATELET COUNT 312 10^3/uL (130-450); RED BLOOD COUNT 4.93 10^6/uL (4.70-6.10); RED CELL DISTRIBUTION WIDTH 12.3 % (12.0-15.0); WHITE BLOOD COUNT 7.9 x10^3/uL (4.8-10.8)
[2022-09-15 09:53] LABS: ALBUMIN 3.7 g/dL (3.2-5.5); ALBUMIN/GLOBULIN RATIO 1.1 (1.0-2.2); ALKALINE PHOSPHATASE 75 IU/L (42-121); ALT ALANINE AMINOTRANSFERASE 60 IU/L (10-60); AST ASPARTATE AMINOTRANSFERASE 43 IU/L (10-42); BILIRUBIN,TOTAL 0.9 mg/dL (0.2-1.0); BUN - BLOOD UREA NITROGEN 20 mg/dL (6-20); CALCIUM 8.9 mg/dL (8.5-10.3); CARBON DIOXIDE - CO2 28 mmol/L (21-32); CHLORIDE 101 mmol/L (101-111); CHOL/HDL RATIO 4.9 (<5.0); CHOLESTEROL 147 mg/dL; CREATININE 0.9 mg/dL (0.6-1.2); GFR - MDRD 80 (>89); GLUCOSE 124 mg/dL (70-100); HDL CHOLESTEROL 30 mg/dL; LDL CHOLESTEROL,CALCULATED 91 mg/dL; POTASSIUM 4.1 mmol/L (3.5-5.0); SODIUM 138 mmol/L (135-145); TRIGLYCERIDES 130 mg/dL; VLDL CHOLESTEROL 26 mg/dL
== END 2022-09-15 09:20 | disposition home or self-care (01) ==
LOC: LAB 09:19
PROVIDERS: ATTEND Registered Nurse
DX: E78.5 Hyperlipidemia, unspecified (principal); Z79.899 Other long term (current) drug therapy
CPT/HCPCS: 36415; 80053; 80061; 83721; 85025

== ENCOUNTER 2023-10-03 08:38 | Outpatient (CLI) | payer MEDICARE, OTHER ==
[2023-10-03 08:57] LABS: BASOPHILS % (AUTO) 0.7 %; EOSINOPHILS # (AUTO) 0.1 10^3/uL (0.0-0.7); EOSINOPHILS % (AUTO) 1.2 %; HCT - HEMATOCRIT 44.4 % (42.0-52.0); HGB - HEMOGLOBIN 14.8 g/dL (14.0-18.0); LYMPHOCYTES # (AUTO) 1.6 10^3/uL (1.5-3.5); MEAN CORPUSCULAR HEMOGLOBIN 31.2 pg (27.0-31.0); MEAN CORPUSCULAR HGB CONC 33.3 g/dL (32.0-36.0); MEAN CORPUSCULAR VOLUME 93.5 fL (80.0-94.0); MEAN PLATELET VOLUME 9.9 fL (7.4-11.4); MONOCYTES # (AUTO) 0.4 10^3/uL (0.0-1.0); MONOCYTES % (AUTO) 7.3 %; NEUTROPHILS # (AUTO) 3.9 10^3/uL (1.5-6.6); NEUTROPHILS % (AUTO) 64.6 %; PLT - PLATELET COUNT 193 10^3/uL (130-450); RED BLOOD COUNT 4.75 10^6/uL (4.70-6.10); RED CELL DISTRIBUTION WIDTH 12.1 % (12.0-15.0); WHITE BLOOD COUNT 6.1 x10^3/uL (4.8-10.8)
[2023-10-03 09:12] LABS: ALBUMIN 4.2 g/dL (3.2-5.5); ALBUMIN/GLOBULIN RATIO 1.6 (1.0-2.2); ALKALINE PHOSPHATASE 78 IU/L (42-121); ALT ALANINE AMINOTRANSFERASE 22 IU/L (10-60); AST ASPARTATE AMINOTRANSFERASE 33 IU/L (10-42); BILIRUBIN,TOTAL 0.8 mg/dL (0.2-1.0); BUN - BLOOD UREA NITROGEN 16 mg/dL (6-20); CALCIUM 9.4 mg/dL (8.5-10.3); CARBON DIOXIDE - CO2 31 mmol/L (21-32); CHLORIDE 105 mmol/L (101-111); CHOL/HDL RATIO 3.7 (<5.0); CHOLESTEROL 144 mg/dL; GFR - MDRD 71 (>89); GLUCOSE 104 mg/dL (74-104); HDL CHOLESTEROL 39 mg/dL; LDL CHOLESTEROL,CALCULATED 86 mg/dL; LDL/HDL RATIO 2.2 (<3.6); POTASSIUM 4.1 mmol/L (3.5-4.5); SODIUM 140 mmol/L (135-145); TOTAL PROTEIN 6.9 g/dL (6.4-8.9); TRIGLYCERIDES 93 mg/dL (48-352); VLDL CHOLESTEROL 19 mg/dL
[2023-10-03 09:26] LABS: THYROID STIMULATING HORMONE 2.82 uIU/mL (0.34-5.60)
[2023-10-03 20:10] LABS: ESTIMATED AVERAGE GLUCOSE 117 mg/dL (70-100); HEMOGLOBIN A1c% 5.7 % (4.27-6.07)
== END 2023-10-03 08:39 | disposition home or self-care (01) ==
LOC: LAB 08:38
PROVIDERS: ATTEND Registered Nurse
DX: R73.02 Impaired glucose tolerance (oral) (principal); Z13.228 Encounter for screening for other metabolic disorders; Z13.220 Encounter for screening for lipoid disorders; Z13.29 Encounter for screening for other suspected endocrine disorder; Z13.0 Encounter for screening for diseases of the blood and blood-forming organs and certain disorders involving the immune mechanism
CPT/HCPCS: 36415; 80053; 80061; 83036; 83721; 84443; 85025

== ENCOUNTER 2023-11-20 08:00 | Outpatient (CLI) | payer MEDICARE, OTHER ==
--- NOTE | 2023-11-20 13:04 | XRAY Report ---
PROCEDURE: Sternum 2+V INDICATIONS: CONTUSION TO FRONT WALL OF THORAX TECHNIQUE: 2 views of the sternum acquired. COMPARISON: None FINDINGS: Bones: No fractures or dislocations. No suspicious bony lesions. Soft tissues: Retrosternal soft tissues appear normal. IMPRESSION: No visualized acute fracture or dislocation. However, occult injury cannot be excluded. Recommend alok rt interval imaging follow-up in 7-10 days as clinically indicated for additional evaluation. Reviewed by: Marychuy Cardona MD on 11/20/2023 1:03 PM PDT Approved by: Marychuy Cardona MD on 11/20/2023 1:03 PM PDT Station ID: [id number]
== END 2023-11-20 23:59 | disposition home or self-care (01) ==
LOC: DI.S 08:00
PROVIDERS: ATTEND Physician Assistant Medical
DX: S20.214A Contusion of middle front wall of thorax, initial encounter (principal)

== ENCOUNTER 2024-01-25 08:00 | Outpatient (CLI) | payer MEDICARE, OTHER ==
[2024-01-25 17:43] LABS: BILIRUBIN,URINE NEGATIVE (NEGATIVE); GLUCOSE, URINE (UA) NEGATIVE (NEGATIVE); KETONES,URINE (UA) NEGATIVE (NEGATIVE); LEUKOCYTE ESTERASE, URINE NEGATIVE (NEGATIVE); NITRITE,URINE NEGATIVE (NEGATIVE); OCCULT BLOOD,URINE SMALL (NEGATIVE); PROTEIN,URINE NEGATIVE (NEGATIVE); UROBILINOGEN,URINE 0.2 (NORMAL) E.U./dL (NORMAL)
[2024-01-25 17:48] LABS: CLARITY,URINE CLEAR (CLEAR)
[2024-01-25 18:09] LABS: BACTERIA,URINE None Seen /HPF (None Seen); RBC,URINE 0-5 /HPF (0-5); SQUAMOUS EPITHELIAL CELL,UR NONE SEEN (<= Few); WBC,URINE 0-3 /HPF (0-3)
== END 2024-01-25 23:59 | disposition home or self-care (01) ==
LOC: LAB.N 08:00
PROVIDERS: ATTEND Urology
DX: R31.9 Hematuria, unspecified (principal)
CPT/HCPCS: 81001; 81003; 87086